=== PATIENT | female | born 1930 | race Caucasian/White ===

== ENCOUNTER 2016-04-16 11:32 | Emergency (ER) | payer MEDICARE ==
[2015-12-19 18:16] VITALS: BMI 26.6
[~2016-04-16 11:32] MED LIST: ALENDRONATE SOD70 MG PO; COZAAR100 MG PO; HYDROCODONE-APA1 TAB PO; LOPRESSOR25 MG PO; NORVASC10 MG PO; PLAVIX75 MG PO; PROTONIX40 MG PO
== END 2016-04-16 13:11 | disposition home or self-care (01) ==
LOC: D.ER 11:32
DX: S82.002A Unspecified fracture of left patella, initial encounter for closed fracture (principal); W19.XXXA Unspecified fall, initial encounter; Y93.89 Activity, other specified; Y92.019 Unspecified place in single-family (private) house as the place of occurrence of the external cause; I10 Essential (primary) hypertension; Z95.0 Presence of cardiac pacemaker

== ENCOUNTER 2016-11-12 09:18 | Emergency (ER) | payer MEDICARE ==
[2015-12-19 18:16] VITALS: BMI 26.6
[2016-11-12 09:48] LABS: BASOPHILS 0.1 % (0-2); EOSINOPHILS 1.7 % (0-7); HEMATOCRIT 41.3 % (36.0-48.0); HEMOGLOBIN 13.7 g/dL (12-16); IMMATURE GRANULOCYTES 0.1 % (0-5); LYMPHOCYTES 30.9 % (15-50); MCH 28.8 pg (26.0-34.0); MCHC 33.2 g/dL (31.0-37.0); MCV 86.8 fL (80.0-100.0); MONOCYTES 10.8 % (2-11); NEUTROPHILS 56.4 % (40-80); PLATELET COUNT 251 10x3/uL (130-400); RBC 4.76 10x6/uL (4.00-5.40); RDW 14.4 % (11.5-14.5); WBC 8.4 10x3/uL (4.8-10.8)
[2016-11-12 09:57] LABS: ALBUMIN 3.3 g/dL (3.4-5.0); ALKALINE PHOSPHATASE 81 U/L (46-116); ALT (SGPT) 17 U/L (10-68); BILIRUBIN - TOTAL 0.33 mg/dL (0.2-1.3); CALC OSMOLALITY 279 mosm/kg (275-300); CALCIUM 9.3 mg/dL (8.5-10.1); CARBON DIOXIDE 24.1 mmol/L (21.0-32.0); CHLORIDE - SERUM 106 mmol/L (98-107); GLUCOSE 106 mg/dL (74-106); POTASSIUM - SERUM 3.9 mmol/L (3.5-5.1); PROTEIN - SERUM 7.3 g/dL (6.4-8.2); SODIUM 139 mmol/L (136-145); UREA NITROGEN 18 mg/dL (7-18); eGFR NON AFRICAN AMERICAN 56 mL/min (90-120)
[2016-11-12 10:08] LABS: CHOL - HDL RATIO 2.3 ratio (2.3-4.1); CHOLESTEROL, TOTAL 182 mg/dL (0-200); CKMB 0.6 U/L (0.0-3.6); CREATINE KINASE 54 UL (21-215); HDL CHOLESTEROL 80 mg/dL (32-96); LDL CHOLESTEROL 95 mg/dL (0-100); LDL-HDL RATIO 1.2 ratio (1.5-3.5); TRIGLYCERIDE 37 mg/dL (30-200); TROPONIN-I < 0.017 ng/mL (0.000-0.060)
== END 2016-11-12 12:25 | disposition home or self-care (01) ==
LOC: D.ER 09:18
PROVIDERS: Emergency Medicine
DX: J15.9 Unspecified bacterial pneumonia (principal); I10 Essential (primary) hypertension; Z95.0 Presence of cardiac pacemaker

== ENCOUNTER 2018-04-12 15:47 | Emergency (ER) | payer MEDICARE ==
[~2018-04-12] VITALS: Ht 157.5 cm; Wt 64.5 kg
[2018-04-12 15:50] VITALS: Ht 157.5 cm; Wt 64.5 kg
[2018-04-12 16:49] LABS: BASOPHILS 0.2 % (0-2); EOSINOPHILS 0.6 % (0-7); HEMATOCRIT 41.4 % (36.0-48.0); HEMOGLOBIN 13.6 g/dL (12-16); IMMATURE GRANULOCYTES 0.3 % (0-5); LYMPHOCYTES 23.7 % (15-50); MCH 28.8 pg (26.0-34.0); MCHC 32.9 g/dL (31.0-37.0); MCV 87.5 fL (80.0-100.0); MEAN PLATELET VOLUME 10.2 fL (7.4-10.4); MONOCYTES 9.7 % (2-11); NEUTROPHILS 65.5 % (40-80); PLATELET COUNT 259 10x3/uL (130-400); RBC 4.73 10x6/uL (4.00-5.40); RDW 14.6 % (11.5-14.5); WBC 11.6 10x3/uL (4.8-10.8)
[2018-04-12 16:55] LABS: APTT 22.7 SECONDS (22.8-39.4); INR 1.1 (0.85-1.17); PROTIME 13.7 SECONDS (11.6-15.0)
[2018-04-12 17:09] LABS: ALBUMIN 3.4 g/dL (3.4-5.0); ANION GAP 16.4 mmol/L (8-16); BILIRUBIN - TOTAL 0.28 mg/dL (0.2-1.3); CALCIUM 9.1 mg/dL (8.5-10.1); CREATININE - SERUM 1.1 mg/dL (0.6-1.3); POTASSIUM - SERUM 4.4 mmol/L (3.5-5.1); PROTEIN - SERUM 7.5 g/dL (6.4-8.2)
[2018-04-12] MEDS ORDERED: HYDROCODON-ACE1 EAC7 PO (17:09)
[2018-04-12 18:16] VITALS: BP 168/88
== END 2018-04-12 17:56 | disposition home or self-care (01) ==
LOC: D.ER 15:47
PROVIDERS: Emergency Medicine
DX: S43.005A Unspecified dislocation of left shoulder joint, initial encounter (principal); X58.XXXA Exposure to other specified factors, initial encounter; Y93.89 Activity, other specified; Y92.89 Other specified places as the place of occurrence of the external cause; S42.202A Unspecified fracture of upper end of left humerus, initial encounter for closed fracture

== ENCOUNTER → 2018-04-20 15:48 | Outpatient (CLI) | payer MEDICARE ==
[2018-04-12 15:50] VITALS: BMI 26.0
[~2018-04-20 15:48] MED LIST changes: +HYDROCODON-ACE1 EAC7 PO
== END | disposition home or self-care (01) ==
LOC: D.CT 15:48
DX: S42.022A Displaced fracture of shaft of left clavicle, initial encounter for closed fracture (principal); X58.XXXA Exposure to other specified factors, initial encounter